=== PATIENT | male | born 1990 | race Two or more races ===

== ENCOUNTER 2020-10-24 13:23 | Emergency (ER) | payer SELFPAY ==
[~2020-10-24] VITALS: Ht 165.1 cm; Wt 75.9 kg
[2020-10-24] MEDS ORDERED: IBUP-1506 PO (13:28)
[2020-10-24] MEDS ORDERED: ACET-2247 PO (13:28)
[2020-10-24 13:32] VITALS: BP 113/61
== END 2020-10-24 15:18 | disposition home or self-care (01) ==
LOC: EMS 13:28
DX: K08.89 Other specified disorders of teeth and supporting structures (principal); F17.210 Nicotine dependence, cigarettes, uncomplicated; Z88.6 Allergy status to analgesic agent; Z79.899 Other long term (current) drug therapy
CPT/HCPCS: 99283; Z7502

== ENCOUNTER 2020-10-28 12:37 | Emergency (ER) | payer SELFPAY ==
[~2020-10-28] VITALS: Ht 165.1 cm; Wt 75.9 kg
[~2020-10-28 12:37] MED LIST: ACET-2247 PO; IBUP-1506 PO
[2020-10-28 14:29] VITALS: BP 127/65
== END 2020-10-28 14:31 | disposition home or self-care (01) ==
LOC: EMS 12:38
DX: K02.9 Dental caries, unspecified (principal); F17.210 Nicotine dependence, cigarettes, uncomplicated; Z88.6 Allergy status to analgesic agent
CPT/HCPCS: 99283